=== PATIENT | female | born 1960 | race African-American/Black ===

== ENCOUNTER 2017-01-19 18:45 | Emergency (ER) | payer OTHER ==
[~2017-01-19] VITALS: Ht 149.9 cm; Wt 69.8 kg
[~2017-01-19 18:45] MED LIST: ACYCLOVIR 200200 MG PO; BACTRIM DS TAB1 EACH PO; LEVOTHYROXIN0.025 MG PO; PYRIDIUM100 M1 PO
[2017-01-19] MEDS ORDERED: LEVEMIR FL100 UNIT/2 SQ (18:51)
[2017-01-19] MEDS ORDERED: NORVASC5 MG PO (18:51)
[2017-01-19] MEDS ORDERED: PANTOPRAZOLE SO40 M1 PO (18:51)
[2017-01-19] MEDS ORDERED: PROAIR RESPICL90 MCG IH (18:51)
[2017-01-19] MEDS ORDERED: LISINOPRIL5 MG PO (18:51)
[2017-01-19] MEDS ORDERED: SINGULAIR 10 MG10 M1 PO (18:51)
[2017-01-19] MEDS ORDERED: LIPITOR 20 MG T20 M1 PO (18:51)
[2017-01-19] MEDS ORDERED: AMARYL2 MG PO (18:51)
[2017-01-19] MEDS ORDERED: NEURONTIN 300300 M1 PO (18:51)
[2017-01-19 19:16] LABS: URINE BILIRUBIN NEGATIVE (Negative); URINE BLOOD 1+ (Negative); URINE COLOR YELLOW; URINE GLUCOSE-RANDOM* 2+ (Negative); URINE KETONES NEGATIVE (Negative); URINE LEUKOCYTES-REFLEX 1+ (Negative); URINE PROTEIN (DIPSTICK) TRACE (Negative); URINE SPECIFIC GRAVITY 1.025 (1.003-1.035); URINE UROBILINOGEN 0.2 E.U./dl (0.2-1.0)
[2017-01-19 19:27] LABS: SQUAMOUS 0-3 Few /LPF (0-3)
[2017-01-19 19:28] LABS: CASTS None Seen /LPF (None Seen)
[2017-01-19 19:29] LABS: CRYSTALS None Seen /LPF (None Seen)
[2017-01-19 19:52] LABS: HEMOGLOBIN 13.3 gm/dL (12.0-15.0); MCH 30.6 pg (26.0-34.0); MCHC 34.1 g/dL (28.0-37.0); MCV 89.5 fL (80.0-100.0); RBC 4.36 mil/uL (4.20-5.00); WBC 11.6 thou/uL (4.0-11.0)
[2017-01-19 19:59] LABS: CALCIUM 9.4 mg/dL (8.5-10.1); CREATININE 0.7 mg/dL (0.6-1.0); POTASSIUM 3.8 mmol/L (3.5-5.1)
[2017-01-19] MEDS ORDERED: FLAGYL500 MG PO (21:30)
[2017-01-19 21:36] VITALS: BP 164/82
[2017-01-20 17:09] LABS: CHLAMYDIA TRACHOMATIS-PCR Negative (Negative); NEISSERIA GONORRHEA-PCR Negative (Negative)
== END 2017-01-19 21:42 | disposition home or self-care (01) ==
LOC: ER 18:45
PROVIDERS: Physician Assistant
DX: A59.01 Trichomonal vulvovaginitis (principal); I10 Essential (primary) hypertension; J45.909 Unspecified asthma, uncomplicated; E11.9 Type 2 diabetes mellitus without complications; F17.210 Nicotine dependence, cigarettes, uncomplicated; Z90.710 Acquired absence of both cervix and uterus; Z98.890 Other specified postprocedural states; Z79.4 Long term (current) use of insulin